=== PATIENT | female | born 1955 | race Caucasian/White ===

== ENCOUNTER 2018-03-09 18:25 | Emergency (ER) | payer OTHER ==
[~2018-03-09] VITALS: Ht 157.5 cm; Wt 73.7 kg
[~2018-03-09 18:25] MED LIST: DOXY100T PO; METR-1 PO; Z.0.NO CURRENT MEDS; ZOFR4TAB3 SL
[2018-03-09 18:27] VITALS: BP 188/88; PULSE 85; RESP 16; TEMP 98.9; O2SAT 85
[2018-03-09] MEDS ORDERED: METH2.5T PO (18:44)
[2018-03-09] MEDS ORDERED: PRED5TAB PO (18:44)
[2018-03-09] MEDS ORDERED: FOLI1TAB6 P-ARTICULR (18:44)
[2018-03-09] MEDS ORDERED: AMLO10TA2 PO (18:44)
[2018-03-09] MEDS ORDERED: SODIUM CHLORIDE 0.9% FLUSH 10 ML FLUSH IV FLUSH PRN (19:00)
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
[2018-03-09 19:26] LABS: CALCIUM 9.3 MG/DL (8.5-10.1)
[2018-03-09 19:27] LABS: AUTOMATED NEUTROPHIL # 5.6 TH/MM3 (1.8-7.7); BASOPHIL % 0.6 % (0.0-2.0); BICARBONATE 23.1 MEQ/L (21.0-32.0); EOSINOPHIL % 0.6 % (0.0-4.0); HEMATOCRIT 36.7 % (35.0-46.0); HEMOGLOBIN 12.3 GM/DL (11.6-15.3); LYMPH % 16.8 % (9.0-44.0); LYMPHOCYTE # 1.3 TH/MM3 (1.0-4.8); MEAN CELL VOLUME 91.4 FL (80.0-100.0); MEAN CORPUSCULAR HEMOGLOBIN 30.5 PG (27.0-34.0); MEAN CORPUSCULAR HGB CONC 33.4 % (32.0-36.0); MEAN PLATELET VOLUME 8.6 FL (7.0-11.0); MONO % 8.8 % (0.0-8.0); MONOCYTE # 0.7 TH/MM3 (0-0.9); NEUT % 73.2 % (16.0-70.0); PLATELET COUNT 324 TH/MM3 (150-450); RED BLOOD COUNT 4.02 MIL/MM3 (4.00-5.30); WHITE BLOOD COUNT 7.6 TH/MM3 (4.0-11.0)
[2018-03-09 19:30] LABS: CREATININE 0.7 MG/DL (0.50-1.00)
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
[2018-03-09] MEDS ORDERED: IOHEXOL 350 MG/ML 10 ML VIAL (for RAD DIAG) IVCONTRAST ONE (19:48)
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
[2018-03-09] MEDS ORDERED: TRAM50 PO (20:18)
== END 2018-03-09 20:24 | disposition home or self-care (01) ==
LOC: PHEFT 18:25
DX: S20.212A Contusion of left front wall of thorax, initial encounter (principal); S30.1XXA Contusion of abdominal wall, initial encounter; M50.30 Other cervical disc degeneration, unspecified cervical region; R91.1 Solitary pulmonary nodule; M06.9 Rheumatoid arthritis, unspecified; I10 Essential (primary) hypertension; F17.200 Nicotine dependence, unspecified, uncomplicated; V43.52XA Car driver injured in collision with other type car in traffic accident, initial encounter; Z79.899 Other long term (current) drug therapy
CPT/HCPCS: 71101; 72125; 74177; 80048; 85025; 99285; Q9967